=== PATIENT | female | born 1960 | race Two or more races ===

== ENCOUNTER → 2024-10-06 | Outpatient (CLI) | payer OTHER, SELFPAY ==
[2024-10-06 16:53] LABS: Basophils # (Auto) 0.1 Thou/mm3 (0.0-0.2); Basophils % (Auto) 1 % (0-2.5); Eosinophils # (Auto) 0.7 Thou/mm3 (0.0-0.5); Eosinophils % (Auto) 7 % (0-10); Hematocrit 40.8 % (36.0-46.0); Hemoglobin 13.6 g/dL (12.0-16.0); Immature Granulocytes % (Auto) 0 % (0-0); Immature Granulocytes Auto 0.04 Thou/mm3 (0.00-0.00); Lymphocytes # (Auto) 2.6 Thou/mm3 (1.0-4.8); Lymphocytes % (Auto) 26 % (10-50); Mean Corpuscular HGB Conc 33.3 g/dl (31.0-37.0); Mean Corpuscular Hemoglobin 31.7 pg (25.0-35.0); Mean Corpuscular Volume 95 fL (80-100); Monocytes # (Auto) 0.8 Thou/mm3 (0.0-0.8); Monocytes % (Auto) 8 % (0-12); Neutrophils # (Auto) 5.6 Thou/mm3 (1.8-7.7); Neutrophils % (Auto) 57 % (37-80); Nucleated Red Blood Cell % 0 /100 WBC (0); Platelet Count 267 Thou/mm3 (140-440); RDW Standard Deviation 42.2 fL (36.4-46.3); Red Blood Count 4.29 Miln/mm3 (4.00-5.20); White Blood Count 9.8 Thou/mm3 (3.6-11.0)
[2024-10-06 17:15] LABS: Alanine Aminotransferase 12 U/L (10-49); Albumin, Serum 4.4 gm/dL (3.4-4.8); Alkaline Phosphatase 103 U/L (46-116); Anion Gap 7 (7-16); Aspartate Amino Transferase 14 U/L (0-34); BUN/Creatinine Ratio 21 Ratio (12-20); Bilirubin,Total 0.3 mg/dL (0.3-1.2); Blood Urea Nitrogen 17 mg/dL (9-23); Calcium 9.5 mg/dL (8.3-10.6); Calcium (Corrected) 9.5 mg/dL (8.5-10.1); Carbon Dioxide 27.2 mMol/L (20.0-31.0); Chloride 105 mMol/L (98-107); Creatinine (Component) 0.8 mg/dL (0.6-1.3); Globulin 2.2 gm/dL (2.3-3.5); Glucose 170 mg/dL (74-106); Osmolality,Calculated 283 (275-295); Potassium 4.4 mMol/L (3.4-5.1); Sodium 139 mMol/L (136-145); Total Protein 6.6 gm/dL (5.7-8.2); eGFR > 60 See Note
== END | disposition home or self-care (01) ==
LOC: SCTO 16:21
PROVIDERS: PCP Family Medicine; Referring Provider Internal Medicine Hematology & Oncology; Visit Provider Internal Medicine Hematology & Oncology
DX: C50.411 Malignant neoplasm of upper-outer quadrant of right female breast (principal)
CPT/HCPCS: 36415; 80053; 85025

== ENCOUNTER 2024-10-10 15:36 | Outpatient (RCR) | payer OTHER, SELFPAY | END 2024-10-22 23:59 | disposition home or self-care (01) | LOC: SCTC 15:36 | PROVIDERS: PCP Family Medicine; Referring Provider Family Medicine; Visit Provider Internal Medicine Hematology & Oncology | DX: C50.411 Malignant neoplasm of upper-outer quadrant of right female breast (principal); Z17.0 Estrogen receptor positive status [ER+]; Z17.21 Progesterone receptor positive status; Z17.32 Human epidermal growth factor receptor 2 negative status; Z79.811 Long term (current) use of aromatase inhibitors; M81.0 Age-related osteoporosis without current pathological fracture | CPT/HCPCS: 99212; G0463 ==

== ENCOUNTER → 2024-10-25 | Outpatient (CLI) | payer OTHER, SELFPAY ==
--- NOTE | 2024-10-25 16:03 | XR_ITS ---
Examination: PA lateral chest 2 views TECHNIQUE: Upright PA lateral chest 2 views Exam date and time: October 25, 2024 1633 hours INDICATIONS: Shortness of breath coughing beginning 2 days ago. FINDINGS: Heart size Lungs are clear. The osseous structures are intact IMPRESSION: No active disease
== END | disposition home or self-care (01) ==
LOC: CDIM 15:55
PROVIDERS: PCP Family Medicine; Referring Provider Nurse Practitioner Family; Visit Provider Nurse Practitioner Family
DX: R06.02 Shortness of breath (principal); R05.9 Cough, unspecified
CPT/HCPCS: 71046

== ENCOUNTER → 2024-12-23 | Outpatient (CLI) | payer OTHER, SELFPAY ==
[2024-12-23 16:12] LABS: Basophils # (Auto) 0.1 Thou/mm3 (0.0-0.2); Basophils % (Auto) 1 % (0-2.5); Eosinophils # (Auto) 0.3 Thou/mm3 (0.0-0.5); Eosinophils % (Auto) 4 % (0-10); Hematocrit 43.9 % (36.0-46.0); Hemoglobin 14.4 g/dL (12.0-16.0); Immature Granulocytes % (Auto) 0 % (0-0); Immature Granulocytes Auto 0.03 Thou/mm3 (0.00-0.00); Lymphocytes # (Auto) 2.6 Thou/mm3 (1.0-4.8); Lymphocytes % (Auto) 32 % (10-50); Mean Corpuscular HGB Conc 32.8 g/dl (31.0-37.0); Mean Corpuscular Hemoglobin 31.2 pg (25.0-35.0); Mean Corpuscular Volume 95 fL (80-100); Monocytes # (Auto) 0.6 Thou/mm3 (0.0-0.8); Monocytes % (Auto) 8 % (0-12); Neutrophils # (Auto) 4.7 Thou/mm3 (1.8-7.7); Neutrophils % (Auto) 56 % (37-80); Nucleated Red Blood Cell % 0 /100 WBC (0); Platelet Count 250 Thou/mm3 (140-440); Red Blood Count 4.61 Miln/mm3 (4.00-5.20); White Blood Count 8.4 Thou/mm3 (3.6-11.0)
[2024-12-23 16:27] LABS: Glucose Estimated Average 157 mg/dL (80-131); Hemoglobin A1C 7.1 % Hgb (4.8-6.0)
[2024-12-23 16:32] LABS: Creatinine MALB Rnd Ur 110 mg/dL (30-125); Microalbumin, Random Urine < 3 mg/L (0-300)
[2024-12-23 16:33] LABS: Alanine Aminotransferase 12 U/L (10-49); Albumin, Serum 4.1 gm/dL (3.4-4.8); Albumin/Globulin Ratio 1.6 (1.2-2.2); Alkaline Phosphatase 78 U/L (46-116); Anion Gap 7 (7-16); Aspartate Amino Transferase 15 U/L (0-34); BUN/Creatinine Ratio 27 Ratio (12-20); Bilirubin,Total 0.5 mg/dL (0.3-1.2); Blood Urea Nitrogen 16 mg/dL (9-23); Calcium 9.1 mg/dL (8.3-10.6); Calcium (Corrected) 9.1 mg/dL (8.5-10.1); Cardiac Risk Estimate 3.4 RATIO (3.7-5.6); Chloride 107 mMol/L (98-107); Cholesterol 155 mg/dL (132-200); Creatinine (Component) 0.6 mg/dL (0.6-1.3); Globulin 2.5 gm/dL (2.3-3.5); Glucose 97 mg/dL (74-106); HDL Cholesterol 46 mg/dL (40-60); LDL Cholesterol,Calculated 91 mg/dL (0-130); Osmolality,Calculated 286 (275-295); Potassium 4.4 mMol/L (3.4-5.1); Sodium 143 mMol/L (136-145); Total Protein 6.6 gm/dL (5.7-8.2); Triglycerides 92 mg/dL (30-150); eGFR > 60 See Note
== END | disposition home or self-care (01) ==
LOC: COPL 14:12
PROVIDERS: PCP Nurse Practitioner Family; Referring Provider Nurse Practitioner Family; Visit Provider Nurse Practitioner Family
DX: E11.65 Type 2 diabetes mellitus with hyperglycemia (principal); E78.5 Hyperlipidemia, unspecified
CPT/HCPCS: 36415; 80053; 80061; 82043; 82570; 83036; 85025

== ENCOUNTER → 2025-02-02 | Outpatient (CLI) | payer OTHER, SELFPAY ==
[2025-02-02 16:54] LABS: Vitamin D 25 Hydroxy Total 29.9 ng/mL (7.3-40.2)
== END | disposition home or self-care (01) ==
LOC: COPL 15:53
PROVIDERS: PCP Family Medicine; Referring Provider Internal Medicine Hematology & Oncology; Visit Provider Specialist
DX: M81.0 Age-related osteoporosis without current pathological fracture (principal)
CPT/HCPCS: 36415; 82306; 82310

== ENCOUNTER 2025-02-27 15:17 | Outpatient (RCR) | payer OTHER, SELFPAY ==
--- NOTE | 2025-03-01 00:11 | CTCFLWUP_ITS ---
Patient: MARGI GAMBOA : 1960 Page 5 of 5 FOLLOW UP NOTE DATE OF SERVICE: 02/27/2025 NAME: MARGI GAMBOA ACCOUNT: [id number] : 1960 AGE: 64 INTERVAL HISTORY: Doing well ONCOLOGY HISTORY: DIAGNOSIS: Stage IIb, ER positive, VT positive, HER-2/leonardo negative invasive ductal carcinoma of right breast (03/03/2017). On adjuvant Aromasin since 10/07/2017. Osteopenia. Unable to tolerate Fosamax which caused body aches and joint pains. (March 2024) Diabetes. REASON FOR TODAY?S VISIT: This is office follow-up visit. Ms. Gamboa is here at [facility]. Patient is taking exemestane . she tolerating it well. Patient is taking calcium and vit d3 . prolia is not approved . Malignant neoplasm of upper-outer quadrant of right female breast [ICD10] C50.411 DATE OF DIAGNOSIS: STAGE/TNM: T2 N1 TREATMENT HISTORY: Care?Plan Start?Date Cycle Day Intent DOCEtaxel?75,?Cyclophosphamide?600?-?Adj 04/16/2017 1 21 Curative?(primary) PROLia?60mg?every?6?months 06/01/2024 1 180 Palliative HISTORY OF PRESENT ILLNESS: Margi Gamboa is a 64-year-old Wol[place] speaking female with following oncology history. 02/12/2017: A stereotactic core biopsy of the left breast lump showed invasive ductal carcinoma. 03/03/2017: Patient had right breast partial mastectomy and sentinel lymph node biopsy. Surgical pathology specimen showed a 2.1 cm, grade 2, single focus invasive ductal carcinoma with lymphovascular invasion. One sentinel lymph node out of 2 lymph nodes were positive for macro metastatic carcinoma with extranodal extension. Tumor was ER positive, VT positive and HER-2/leonardo negative. Oncotype DX recurrence score was 24 placing the patient in intermediate risk group. 04/16/2017?06/18/2017: Patient had 4 cycles of adjuvant TC regimen chemotherapy. 08/03/2017?09/24/2017: Patient had adjuvant radiation therapy to the right breast. 10/07/2017: Patient was started on adjuvant Aromasin which she continues to take to this day. She was never tried on anastrozole or letrozole. 11/05/2017: Bone density test?There is normal mineralization based on lumbar spine measurements. There is normal mineralization based on hip measurements 12/27/2018: Patient is doing very well. Denies any new complaints. Denies any weakness fatigue cough chest pain shortness of breath abdominal pain or leg cramps. She denies any weight loss or loss of appetite. She denies any hot flashes body aches or joint pains. 11/28/2019: Bone density test?Impression: There is normal mineralization based on lumbar spine measurements. There is normal mineralization based on hip measurements. Lumbar mineralization is decreased 1.7% compared with November 05, 2017. Hip mineralization is increased 3.5% compared with November 05, 2017. 09/22/2021: Bilateral screening mammograms? 01/05/2022: Bilateral breast ultrasound? 01/17/2022: Bone density test? 04/05/2024: Bone density test? 04/07/2024: Patient was prescribed an iron 2835 mg p.o. weekly. Patient has taken alendronate for 2 weeks and decided not to continue due to severe body aches joint pains muscle pains as well as bone aches. 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 acarbose - 50 mg 1 tab Twice a Day 2. Calcium 600 + D(3) - 600 mg-10 mcg (400 unit) 1 tab Twice a Day 3. glimepiride - 4 mg Daily 4. metFORMIN - 500 mg 500 mg Twice a Day 5. Ozempic - 0.25 mg or 0.5 mg(2 mg/1.5 mL) 1 Weekly 6. tamoxifen - 20 mg 1 tab Daily Medications Last Reconciled by Bertha Gonzalez MA on 02/27/2025 ALLERGIES: codeine sulfate REVIEW OF SYSTEMS: A complete 14-point review of systems was performed and is negative except as noted in interval history. PHYSICAL EXAMINATION: VITAL SIGNS: Temperature?98.1, B/P?144/80, Oxygen?Saturation?95% Weight?129?lbs PAIN: 0 - No pain ECOG Performance Status: None GENERAL APPEARANCE: Appears well, in no apparent distress, appropriately interactive. HEENT: Normocephalic, no temporal wasting, normal conjunctiva, no scleral icterus, normal hearing, lips without lesions, neck normal range of motion. CARDIOVASCULAR: Not assessed. PULMONARY: Normal respiratory effort, no respiratory distress or use of accessory muscles, speaking in full sentences, no tachypnea. EXTREMITIES: No pedal edema or cyanosis. SKIN: Normal skin appearance. NEUROLOGIC: Alert and oriented x4. PSHYCHIATRIC: Appropriate affect, mood normal, behavior normal, intact thought and speech. LABORATORY DATA: I have personally reviewed and interpreted each of the patient?s relevant lab tests, abnormal findings are below: Date 12/23/24 02/02/25 02/28/25 ??WHITE?BLOOD?COUNT?(Thou/mm3) 8.4 ?RED?BLOOD?COUNT?(Miln/mm3) 4.61 ?HEMOGLOBIN?(gm/dl) 14.4 ?HEMATOCRIT?(%) 43.9 ?PLATELET?COUNT?(Thou/mm3) 250 ?NEUTROPHILS?%,?AUTO?(%) 56 ?LYMPH?%,?AUTO?(%) 32 ?NEUTROPHILS,?AUTO?(Thou/mm3) 4.7 ?GLUCOSE,RANDOM?(mg/dL) 97 ?BLOOD?UREA?NITROGEN?(mg/dL) 16 ?CREATININE?(mg/dL) 0.60 ?SODIUM?(mmol/L) 143 ?POTASSIUM?(mmol/L) 4.4 ?CHLORIDE?(mmol/L) 107 ?CrCl?(CandG)?(ml/min) 88.65 ?AST/SGOT?(Unit/L) 15 ?ALT/SGPT?(Unit/L) 12 ?ALKALINE?PHOSPHATASE?(Unit/L) 78 ?BILIRUBIN,?TOTAL?(mg/dL) 0.5 ?PROTEIN?TOTAL?(gm/dl) 6.6 ?ALBUMIN,?SERUM?(gm/dl) 4.1 ?GLOBULIN?(gm/dl) 2.5 ?ALBUMIN/GLOBULIN?RATIO 1.6 ?CALCIUM,?SERUM?(mg/dL) 9.1 9.0 9.2 ??CALCIUM?SERUM?(CORRECTED)?(mg/dL) 9.1 ? ? ASSESSMENT/PLAN: #1 stage IIb, ER positive, VT positive, HER-2/leonardo negative invasive ductal carcinoma of right breast. No clinical evidence of recurrence. Patient have completed 7 years of antiendocrine therapy with aromatase inhibitors. Was switched to tamoxifen for another 3 years for total 10 years of antiendocrine therapy and also to prevent further osteoporosis Cont tamoxifen #2 osteoporosis Patient is also taking calcium and vitamin D tablets Patient have osteoporosis which have been getting slowly worsened Patient was unable to tolerate alendronate P rolia was ordered as a treatment for osteoporosis as well as adjuvant therapy for breast cancer Once insurance approves it advised to take Benadryl before injection ORDERS: Order # Description [id number] 3D Mammogram Diagnostic + Bilateral [id number] Comprehensive Metabolic Panel - 12 + CBC with Auto Diff + MD Follow Up 6 Month RETURN TO CLINIC: 6 month BILLING AND COMPLIANCE: I reviewed external records from providers outside my specialty as summarized above. I spent a total of 50 minutes on this patient?s care on the day of their visit excluding time spent related to any billed procedures. This time includes time spent with the patient as well as time spent documenting in the medical record, reviewing patients records and tests, obtaining history, placing orders, communicating with other healthcare professionals, counseling the patient, family or caregiver, and/or care coordination for the diagnoses above. Electronically Signed by: {Object.Sanct_ID*[email or web address]@M}, {Object.Sanct_ID*PnP.Suffix@U} D: {Object.Sanct_Date} T: {Object.Sanct_Time} CC: PCP: Asaf Ojeda Referring: Asaf Ojeda This document was completed utilizing speech recognition software. Grammatical errors, random word insertions, pronoun errors, and incomplete sentences are an occasional consequence of this system due to software limitations, ambient noise, and hardware issues. Any formal questions or concerns about the content, text or information contained within the body of this dictation should be directly addressed to the provider for clarification.
== END 2025-03-22 23:59 | disposition home or self-care (01) ==
LOC: SCTC 15:17
PROVIDERS: PCP Family Medicine; Referring Provider Family Medicine; Visit Provider Internal Medicine Hematology & Oncology
DX: C50.411 Malignant neoplasm of upper-outer quadrant of right female breast (principal); Z17.0 Estrogen receptor positive status [ER+]; Z17.21 Progesterone receptor positive status; Z17.32 Human epidermal growth factor receptor 2 negative status; Z79.810 Long term (current) use of selective estrogen receptor modulators (SERMs); M81.0 Age-related osteoporosis without current pathological fracture
CPT/HCPCS: 99212; G0463

== ENCOUNTER → 2025-02-28 | Outpatient (CLI) | payer OTHER, SELFPAY ==
[2025-02-28 17:34] LABS: Calcium 9.2 mg/dL (8.3-10.6)
[2025-02-28 18:22] LABS: Vitamin D 25 Hydroxy Total 31.1 ng/mL (7.3-40.2)
== END | disposition home or self-care (01) ==
LOC: COPL 16:36
PROVIDERS: PCP Family Medicine; Referring Provider Internal Medicine Hematology & Oncology; Visit Provider Specialist
DX: M81.0 Age-related osteoporosis without current pathological fracture (principal)
CPT/HCPCS: 36415; 82306; 82310

== ENCOUNTER → 2025-07-21 | Outpatient (CLI) | payer OTHER, SELFPAY | END | disposition home or self-care (01) | PROVIDERS: PCP Nurse Practitioner Family; Referring Provider Nurse Practitioner Family; Visit Provider Nurse Practitioner Family | DX: N39.0 Urinary tract infection, site not specified (principal) | CPT/HCPCS: 87077; 87086; 87186 ==

== ENCOUNTER → 2025-08-23 | Outpatient (CLI) | payer OTHER, SELFPAY ==
[2025-08-23 16:51] LABS: Basophils # (Auto) 0.1 Thou/mm3 (0.0-0.2); Basophils % (Auto) 1 % (0-2.5); Eosinophils # (Auto) 0.2 Thou/mm3 (0.0-0.5); Eosinophils % (Auto) 3 % (0-10); Hematocrit 41.6 % (36.0-46.0); Hemoglobin 14.0 g/dL (12.0-16.0); Immature Granulocytes Auto 0.03 Thou/mm3 (0.00-0.00); Lymphocytes # (Auto) 2.9 Thou/mm3 (1.0-4.8); Lymphocytes % (Auto) 32 % (10-50); Mean Corpuscular HGB Conc 33.7 g/dl (31.0-37.0); Mean Corpuscular Hemoglobin 32.3 pg (25.0-35.0); Mean Corpuscular Volume 96 fL (80-100); Monocytes # (Auto) 0.9 Thou/mm3 (0.0-0.8); Monocytes % (Auto) 9 % (0-12); Neutrophils # (Auto) 5.0 Thou/mm3 (1.8-7.7); Neutrophils % (Auto) 55 % (37-80); Nucleated Red Blood Cell # 0.00 Thou/mm3 (0.00-0.00); Nucleated Red Blood Cell % 0 /100 WBC (0); Platelet Count 223 Thou/mm3 (140-440); RDW Standard Deviation 42.8 fL (36.4-46.3); Red Blood Count 4.33 Miln/mm3 (4.00-5.20); White Blood Count 9.1 Thou/mm3 (3.6-11.0)
[2025-08-23 17:05] LABS: Glucose Estimated Average 171 mg/dL (80-131); Hemoglobin A1C 7.6 % Hgb (4.8-6.0)
[2025-08-23 17:11] LABS: Alanine Aminotransferase 16 U/L (10-49); Albumin, Serum 4.1 gm/dL (3.4-4.8); Albumin/Globulin Ratio 2.0 (1.2-2.2); Alkaline Phosphatase 40 U/L (46-116); Anion Gap 11 (7-16); Aspartate Amino Transferase 18 U/L (0-34); BUN/Creatinine Ratio 18 Ratio (12-20); Bilirubin,Total 0.5 mg/dL (0.3-1.2); Blood Urea Nitrogen 14 mg/dL (9-23); Calcium 8.9 mg/dL (8.3-10.6); Calcium (Corrected) 8.9 mg/dL (8.5-10.1); Carbon Dioxide 25.9 mMol/L (20.0-31.0); Cardiac Risk Estimate 2.9 RATIO (3.7-5.6); Chloride 108 mMol/L (98-107); Cholesterol 133 mg/dL (132-200); Creatinine (Component) 0.8 mg/dL (0.6-1.3); Globulin 2.1 gm/dL (2.3-3.5); Glucose 101 mg/dL (74-106); HDL Cholesterol 46 mg/dL (40-60); LDL Cholesterol,Calculated 66 mg/dL (0-130); Osmolality,Calculated 289 (275-295); Potassium 4.1 mMol/L (3.4-5.1); Sodium 145 mMol/L (136-145); Thyroid Stimulating Hormone 0.81 uIU/mL (0.55-4.78); Total Protein 6.2 gm/dL (5.7-8.2); Triglycerides 106 mg/dL (30-150); eGFR > 60 See Note
[2025-08-23 17:12] LABS: T4 (Thyroxine) 10.2 mcg/dL (4.5-10.9)
== END | disposition home or self-care (01) ==
LOC: SCTO 15:14
PROVIDERS: PCP Nurse Practitioner Family; Referring Provider Internal Medicine Hematology & Oncology; Visit Provider Internal Medicine Hematology & Oncology
DX: E11.65 Type 2 diabetes mellitus with hyperglycemia (principal); E78.5 Hyperlipidemia, unspecified; C50.411 Malignant neoplasm of upper-outer quadrant of right female breast
CPT/HCPCS: 36415; 80053; 80061; 83036; 84436; 84443; 85025

== ENCOUNTER 2025-08-29 15:28 | Outpatient (RCR) | payer OTHER, SELFPAY ==
--- NOTE | 2025-09-03 23:11 | CTCFLWUP_ITS ---
Patient: MARGI GAMBOA : 1960 Page 4 of 5 FOLLOW UP NOTE DATE OF SERVICE: 08/29/2025 NAME: MARGI GAMBOA ACCOUNT: [id number] : 1960 AGE: 65 INTERVAL HISTORY: Since last visit patient had mammogram on 05/01/2025 which showed no evidence of malignancy patient also had bone density completed on 04/05/2024 which showed osteopenia and risk of fracture increased since the last DEXA scan. Patient is on Prolia and takes her calcium and vitamin D. No new complaints ONCOLOGY HISTORY: DIAGNOSIS: Stage IIb, ER positive, FL positive, HER-2/leonardo negative invasive ductal carcinoma of right breast (03/03/2017). On adjuvant Aromasin since 10/07/2017. Osteopenia. Unable to tolerate Fosamax which caused body aches and joint pains. (March 2024) Diabetes. REASON FOR TODAY?S VISIT: This is office follow-up visit. Ms. Gamboa is here at [facility]. Patient is taking exemestane . she tolerating it well. Patient is taking calcium and vit d3 . prolia is not approved . Malignant neoplasm of upper-outer quadrant of right female breast [ICD10] C50.411 DATE OF DIAGNOSIS: STAGE/TNM: T2 N1 TREATMENT HISTORY: Care?Plan Start?Date Cycle Day Intent DOCEtaxel?75,?Cyclophosphamide?600?-?Adj 04/16/2017 1 21 Curative?(primary) PROLia?60mg?every?6?months 06/01/2024 1 180 Palliative HISTORY OF PRESENT ILLNESS: Margi Gamboa is a 65-year-old Bruneian speaking female with following oncology history. 02/12/2017: A stereotactic core biopsy of the left breast lump showed invasive ductal carcinoma. 03/03/2017: Patient had right breast partial mastectomy and sentinel lymph node biopsy. Surgical pathology specimen showed a 2.1 cm, grade 2, single focus invasive ductal carcinoma with lymphovascular invasion. One sentinel lymph node out of 2 lymph nodes were positive for macro metastatic carcinoma with extranodal extension. Tumor was ER positive, FL positive and HER-2/leonardo negative. Oncotype DX recurrence score was 24 placing the patient in intermediate risk group. 04/16/2017?06/18/2017: Patient had 4 cycles of adjuvant TC regimen chemotherapy. 08/03/2017?09/24/2017: Patient had adjuvant radiation therapy to the right breast. 10/07/2017: Patient was started on adjuvant Aromasin which she continues to take to this day. She was never tried on anastrozole or letrozole. 11/05/2017: Bone density test?There is normal mineralization based on lumbar spine measurements. There is normal mineralization based on hip measurements 12/27/2018: Patient is doing very well. Denies any new complaints. Denies any weakness fatigue cough chest pain shortness of breath abdominal pain or leg cramps. She denies any weight loss or loss of appetite. She denies any hot flashes body aches or joint pains. 11/28/2019: Bone density test?Impression: There is normal mineralization based on lumbar spine measurements. There is normal mineralization based on hip measurements. Lumbar mineralization is decreased 1.7% compared with November 05, 2017. Hip mineralization is increased 3.5% compared with November 05, 2017. 09/22/2021: Bilateral screening mammograms? 01/05/2022: Bilateral breast ultrasound? 01/17/2022: Bone density test? 04/05/2024: Bone density test? 04/07/2024: Patient was prescribed an iron 2835 mg p.o. weekly. Patient has taken alendronate for 2 weeks and decided not to continue due to severe body aches joint pains muscle pains as well as bone aches. 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 acarbose - 50 mg 1 tab Twice a Day 2. Calcium 600 + D(3) - 600 mg-10 mcg (400 unit) 1 tab Twice a Day 3. glimepiride - 4 mg Daily 4. metFORMIN - 500 mg 500 mg Twice a Day 5. Ozempic - 0.25 mg or 0.5 mg(2 mg/1.5 mL) 1 Weekly 6. tamoxifen - 20 mg 1 tab Daily Medications Last Reconciled by Eloisa Coon MD on 08/30/2025 ALLERGIES: codeine sulfate REVIEW OF SYSTEMS: A complete 14-point review of systems was performed and is negative except as noted in interval history. PHYSICAL EXAMINATION: VITAL SIGNS: Temperature?99, B/P?128/77, Oxygen?Saturation?95% PAIN: 0 - No pain ECOG Performance Status: None GENERAL APPEARANCE: Appears well, in no apparent distress, appropriately interactive. HEENT: Normocephalic, no temporal wasting, normal conjunctiva, no scleral icterus, normal hearing, lips without lesions, neck normal range of motion. CARDIOVASCULAR: Not assessed. PULMONARY: Normal respiratory effort, no respiratory distress or use of accessory muscles, speaking in full sentences, no tachypnea. EXTREMITIES: No pedal edema or cyanosis. SKIN: Normal skin appearance. NEUROLOGIC: Alert and oriented x4. PSHYCHIATRIC: Appropriate affect, mood normal, behavior normal, intact thought and speech. LABORATORY DATA: I have personally reviewed and interpreted each of the patient?s relevant lab tests, abnormal findings are below: Date 02/02/25 02/28/25 08/23/25 ??WHITE?BLOOD?COUNT?(Thou/mm3) ? ? 9.1 ??RED?BLOOD?COUNT?(Miln/mm3) ? ? 4.33 ??HEMOGLOBIN?(gm/dl) ? ? 14.0 ??HEMATOCRIT?(%) ? ? 41.6 ??PLATELET?COUNT?(Thou/mm3) ? ? 223 ??NEUTROPHILS?%,?AUTO?(%) ? ? 55 ??LYMPH?%,?AUTO?(%) ? ? 32 ??NEUTROPHILS,?AUTO?(Thou/mm3) ? ? 5.0 ??GLUCOSE,RANDOM?(mg/dL) ? ? 101 ??BLOOD?UREA?NITROGEN?(mg/dL) ? ? 14 ??CREATININE?(mg/dL) ? ? 0.80 ??SODIUM?(mmol/L) ? ? 145 ??POTASSIUM?(mmol/L) ? ? 4.1 ??CHLORIDE?(mmol/L) ? ? 108?H ??CrCl?(CandG)?(ml/min) ? ? 65.62 ??AST/SGOT?(Unit/L) ? ? 18 ??ALT/SGPT?(Unit/L) ? ? 16 ??ALKALINE?PHOSPHATASE?(Unit/L) ? ? 40?L ??BILIRUBIN,?TOTAL?(mg/dL) ? ? 0.5 ??PROTEIN?TOTAL?(gm/dl) ? ? 6.2 ??ALBUMIN,?SERUM?(gm/dl) ? ? 4.1 ??GLOBULIN?(gm/dl) ? ? 2.1?L ??ALBUMIN/GLOBULIN?RATIO ? ? 2.0 ??CALCIUM,?SERUM?(mg/dL) 9.0 9.2 8.9 ??CALCIUM?SERUM?(CORRECTED)?(mg/dL) ? ? 8.9 ASSESSMENT/PLAN: #1 stage IIb, ER positive, FL positive, HER-2/leonardo negative invasive ductal carcinoma of right breast. No clinical evidence of recurrence. Patient have completed 7 years of antiendocrine therapy with aromatase inhibitors. Was switched to tamoxifen for another 3 years for total 10 years of antiendocrine therapy and also to prevent further osteoporosis Tolerating tamoxifen well Cont tamoxifen #2 osteoporosis Patient is also taking calcium and vitamin D tablets Patient have osteoporosis which have been getting slowly worsened Patient was unable to tolerate alendronate P rolia was ordered as a treatment for osteoporosis as well as adjuvant therapy for breast cancer Once insurance approves it advised to take Benadryl before injection ORDERS: Order # Description [id number] CA 15-3 + Comprehensive Metabolic Panel - 12 + CBC with Auto Diff RETURN TO CLINIC: I reviewed the diagnosis, prognosis, and recommended treatment/procedure options with the patient (and/or their legal agency service representative), including the potential benefits, risks, side effects and alternative therapies. We also discussed the option of no treatment and the possibility of clinical trial participation, if applicable. All questions were addressed, and they demonstrated understanding. They provided informed consent to proceed with the proposed plan of care. BILLING AND COMPLIANCE: I reviewed external records from providers outside my specialty as summarized above. I spent a total of 50 minutes on this patient?s care on the day of their visit excluding time spent related to any billed procedures. This time includes time spent with the patient as well as time spent documenting in the medical record, reviewing patients records and tests, obtaining history, placing orders, communicating with other healthcare professionals, counseling the patient, family or caregiver, and/or care coordination for the diagnoses above. Electronically Signed by: {Object.Sanct_ID*PnP.NameFL@M}, {Object.Sanct_ID*PnP.Suffix@U} D: {Object.Sanct_Date} T: {Object.Sanct_Time} CC: PCP: Maxim Ring Referring: Maxim Ring This document was completed utilizing speech recognition software. Grammatical errors, random word insertions, pronoun errors, and incomplete sentences are an occasional consequence of this system due to software limitations, ambient noise, and hardware issues. Any formal questions or concerns about the content, text or information contained within the body of this dictation should be directly addressed to the provider for clarification.
== END 2025-09-22 23:59 | disposition home or self-care (01) ==
LOC: SCTC 15:28
PROVIDERS: PCP Nurse Practitioner Family; Referring Provider Nurse Practitioner Family; Visit Provider Internal Medicine Hematology & Oncology
DX: C50.411 Malignant neoplasm of upper-outer quadrant of right female breast (principal); Z17.0 Estrogen receptor positive status [ER+]; Z17.21 Progesterone receptor positive status; Z17.32 Human epidermal growth factor receptor 2 negative status; Z79.810 Long term (current) use of selective estrogen receptor modulators (SERMs); Z90.11 Acquired absence of right breast and nipple; Z92.21 Personal history of antineoplastic chemotherapy; Z92.3 Personal history of irradiation; M81.0 Age-related osteoporosis without current pathological fracture
CPT/HCPCS: 99212; G0463

== ENCOUNTER → 2025-09-08 | Outpatient (CLI) | payer OTHER, SELFPAY ==
[2025-09-08 16:38] LABS: Calcium 9.1 mg/dL (8.3-10.6)
[2025-09-08 16:46] LABS: Vitamin D 25 Hydroxy Total 26.0 ng/mL (7.3-40.2)
== END | disposition home or self-care (01) ==
LOC: COPL 14:51
PROVIDERS: PCP Family Medicine; Referring Provider Specialist; Visit Provider Specialist
DX: M81.0 Age-related osteoporosis without current pathological fracture (principal)
CPT/HCPCS: 36415; 82306; 82310